=== PATIENT | female | born 1955 | race African-American/Black ===

== ENCOUNTER → 2016-09-26 | Outpatient (CLI) | payer BC ==
[~2016-09-26] MED LIST: LEXAPRO20 MG PO; SEROQUEL PO; VISTARIL PO
--- NOTE | ~2016-09-26 | MY11 ---
[facility] A Service of [facility] RADIOLOGY TEXT RESULTS PATIENT: LUZ DAVIS LOCATION: [facility] : 59 UNIT #: [id number] AGE: [address]: MONCHO MONTERROSO MD SEX: F ORDER DR: [id number] [facility] [address] [place], [place] [address] [id number] O MR#: [id number] Acc #: [id number] NAME: LUZ DAVIS : 1955 SEX: F STUDY DATE/TIME: 09/26/2016 9:58 UNIT: [facility] ROOM: STUDY DESCRIPTION: MY Mammogram Screening Dig Jayesh Attending Physician: Moncho Monterroso M.D. Ordering Physician: Moncho Monterroso M.D. Primary Care Physician: Moncho Monterroso M.D. MEDICAL IMAGING REPORT This report is preliminary unless electronic signature is present EXAM Screening mammogram 09/26/2016 INDICATIONS 61-year-old with no personal or family history of breast cancer. No current complaints. FINDINGS Routine digital screening views of both breasts were obtained. Study was reviewed with an FDA-approved CAD device. Comparison made with 06/12/2015, 12/12/2013, and 10/20/2011. Breast parenchyma shows scattered fibroglandular densities. No new masses or suspicious microcalcifications are seen. Benign calcifications are present in both breasts. Benign nodularity in the right breast is stable. There is a subareolar nodule in the left breast just lateral to and below the nipple line. This does measure slightly larger than on prior studies, now measuring up to 10 mm. Followup with ultrasound is recommended for further characterization. IMPRESSION 1. Benign right mammogram. 2. Slight enlargement of the nodule in the anterior subareolar left breast. Ultrasound followup is recommended of the left breast. Patients over the age of 40 are entered into a reminder system with target due date for the next mammogram. A result letter will also be sent to the patient. BIRADS: 0 Incomplete; need additional imaging evaluation and/or prior mammograms for comparison. [facility] A Service of [facility] RADIOLOGY TEXT RESULTS PATIENT: LUZ DAVIS LOCATION: [facility] : 59 UNIT #: [id number] AGE: [address]: MONCHO MONTERROSO MD SEX: F ORDER DR: Dictated by... Refugio Crump Jr., M.D. THIS IS AN ELECTRONICALLY VERIFIED REPORT Refugio Crump Jr., M.D. at 09/26/2016 4:47 PM SPARKLE/kassie TD: 09/26/2016 11:35 JOB #: [id number] MEDICAL IMAGING REPORT Page 1 of 1 COPY
== END | disposition home or self-care (01) ==
LOC: CWCC 09:11
DX: Z12.31 Encounter for screening mammogram for malignant neoplasm of breast (principal); N63 Unspecified lump in breast
CPT/HCPCS: G0202

== ENCOUNTER → 2016-10-03 | Outpatient (CLI) | payer BC ==
--- NOTE | ~2016-10-03 | US24 ---
[facility] A Service of [facility] RADIOLOGY TEXT RESULTS PATIENT: LUZ DAVIS LOCATION: [facility] : 59 UNIT #: [id number] AGE: [address]: MONCHO MONTERROSO MD SEX: F ORDER DR: [id number] [facility]. [place], [place] [address] [id number] O MR#: [id number] Acc #: [id number] NAME: LUZ DAVIS : 1955 SEX: F STUDY DATE/TIME: 10/03/2016 14:21 UNIT: [facility] ROOM: STUDY DESCRIPTION: US Breast Unilateral Attending Physician: Moncho Monterroso M.D. Referring Physician: Moncho Monterroso M.D. Ordering Physician: Moncho Monterroso M.D. Primary Care Physician: Moncho Monterroso M.D. MEDICAL IMAGING REPORT This report is preliminary unless electronic signature is present EXAM Targeted ultrasound of the left breast. DATE OF EXAM 10/03/2016 INDICATIONS Asymmetry in the anterior left breast on a recent screening mammogram. Ultrasound requested for further assessment. TECHNIQUE Targeted ultrasound of the left breast was performed with attention to the subareolar left breast in the area of the patient's nodule on the recent mammogram. COMPARISON No comparison ultrasounds. FINDINGS LEFT BREAST: The patient was initially scanned independently by the technologist and then rescanned in my presence. In the subareolar/periareolar left breast, there is a lobulated cyst measuring up to about 13 x 8 x 10 mm. This is felt to correspond to the nodule on the patient's mammogram. It has benign features. Imaging of the subareolar left breast was also performed in conjunction with the imaging of the cyst. There is ductal ectasia on the left and there is a small solid intraluminal filling defect within the ducts measuring up to about 5 mm. There is no posterior acoustical shadowing, but there is faint color internal flow best appreciated in real-time. This probably represents a tiny benign intraductal papilloma. Ultrasound-guided core biopsy is however recommended for further assessment and characterization. [facility] A Service of [facility] RADIOLOGY TEXT RESULTS PATIENT: LUZ DAVIS LOCATION: [facility] : 59 UNIT #: [id number] AGE: [address]: MONCHO MONTERROSO MD SEX: F ORDER DR: Findings regarding recommendations for biopsy were discussed with the patient, also communicated directly to the breast rn transitional care at the time of this dictation. The patient has voiced understanding and agreement. She did indicate initially that she was not interested in undergoing the biopsy but subsequently indicated that she would schedule the biopsy as recommended. The breast rn transitional care is in the process of notifying the office of Dr. Moncho Monterroso regarding the recommendations for biopsy. IMPRESSION 1. There is a cyst in the periareolar subareolar left breast that corresponds to the nodule on the patient's mammogram. This is a benign cyst measuring about 13 x 10 mm. 2. There is ductal ectasia on the left, and there is a small intraluminal filling defect within the ducts measuring up to about 5 mm. This may represent an intraductal papilloma, but ultrasound-guided core biopsy is recommended for further assessment. The breast rn transitional care has been notified, and the patient is aware of the recommendation for biopsy as well. See discussion above. Patients over the age of 40 are entered into a reminder system with target due date for the next mammogram. A result letter will also be sent to the patient. BIRADS: 4 Suspicious abnormality; biopsy should be considered. STAT * RESULT Dictated by... Marlon Vasquez M.D. THIS IS AN ELECTRONICALLY VERIFIED REPORT Marlon Vasquez M.D. at 10/03/2016 5:25 PM Con TD: 10/03/2016 15:41 JOB #: [id number] MEDICAL IMAGING REPORT Page 1 of 1 COPY
== END | disposition home or self-care (01) ==
LOC: CWCC 13:53
DX: N63 Unspecified lump in breast (principal); N60.02 Solitary cyst of left breast; N60.42 Mammary duct ectasia of left breast
CPT/HCPCS: 76641

== ENCOUNTER → 2016-10-10 | Day surgery (SDC) | payer BC ==
--- NOTE | ~2016-10-10 | US200 ---
[facility] A Service of [facility] RADIOLOGY TEXT RESULTS PATIENT: LUZ DAVIS LOCATION: [facility] : 59 UNIT #: [id number] AGE: [address]: MONCHO MONTERROSO MD SEX: F ORDER DR: [id number] [id number] [place], [place] [address] [id number] O MR#: [id number] Acc #: [id number] NAME: LUZ DAVIS : 1955 SEX: F STUDY DATE/TIME: 10/10/2016 12:50 UNIT: [facility] ROOM: STUDY DESCRIPTION: US Breast Guided Bx 1st Lesion Attending Physician: Moncho Monterroso M.D. Ordering Physician: Moncho Monterroso M.D. Primary Care Physician: Moncho Monterroso M.D. MEDICAL IMAGING REPORT This report is preliminary unless electronic signature is present REVISED REPORT SEE ADDENDUM EXAM Ultrasound-guided left breast biopsy 10/10/2016 INDICATIONS Intraductal subareolar left breast mass. PROCEDURE Following discussion of the procedure including potential risks and benefit informed consent was obtained. The patient's questions were answered. The patient was brought to the ultrasound suite, a call to order time-out was performed. Preliminary imaging again shows the intraductal left breast mass. Adequate skin entry site was identified. Skin was prepped and draped using full sterile technique. Skin and overlying soft tissues were anesthetized buffered lidocaine. Then under ultrasound guidance 2 core samples were obtained from the mass. Images were stored. Then a biopsy marker clip was placed under ultrasound guidance. At the time of clip placement a small hematoma had developed in the subareolar region. The mass itself was very difficult to see. The biopsy marker clip was placed in the general vicinity of the mass. IMPRESSION 1. Ultrasound-guided core biopsy of a subareolar left breast mass. No immediate complication. 2. Post clip placement mammogram shows the marker clip in the general vicinity of the mass. See above. Dictated by... Michele nAne M.D. [facility] A Service of [facility] RADIOLOGY TEXT RESULTS PATIENT: LUZ DAVIS LOCATION: [facility] : 59 UNIT #: [id number] AGE: [address]: MONCHO MONTERROSO MD SEX: F ORDER DR: THIS IS AN ELECTRONICALLY VERIFIED REPORT Michele Anne M.D. at 10/13/2016 7:42 AM LETY/vinnie TD: 10/10/2016 18:41 JOB #: [id number] ADDENDUM/CORRECTION Addendum to breast biopsy DATE OF SERVICE: 10/10/16 Pathology is available. There is no invasive malignancy identified. Pathology is concordant with imaging features. Dictated by... Michele Anne M.D. THIS IS AN ELECTRONICALLY VERIFIED REPORT Michele Anne M.D. at 10/31/2016 10:09 PM Erica TD: 10/29/2016 08:19 JOB #: [id number] CC: Jana/noreen Please Delete MEDICAL IMAGING REPORT Page 1 of 1 COPY
== END | disposition home or self-care (01) ==
LOC: CWCC 12:20
DX: N60.82 Other benign mammary dysplasias of left breast (principal); N60.02 Solitary cyst of left breast; N60.42 Mammary duct ectasia of left breast; N60.32 Fibrosclerosis of left breast
CPT/HCPCS: 88305; G0204

== ENCOUNTER → 2016-11-26 | Day surgery (SDC) | payer BC ==
--- NOTE | ~2016-11-26 | MY14 ---
[facility] A Service of [facility] RADIOLOGY TEXT RESULTS PATIENT: LUZ DAVIS LOCATION: [facility] : 59 UNIT #: [id number] AGE: [address]: Young Haque MD SEX: F ORDER DR: [id number] [facility] [address] [place], [place] [address] [id number] O MR#: [id number] Acc #: [id number] NAME: LUZ DAVIS : 1955 SEX: F STUDY DATE/TIME: 11/26/2016 10:03 UNIT: [facility] ROOM: STUDY DESCRIPTION: MY Post Bx Film Attending Physician: Young Haque M.D. Referring Physician: Young Haque M.D. Ordering Physician: Young Haque M.D. Primary Care Physician: Monica Mcghee M.D. MEDICAL IMAGING REPORT This report is preliminary unless electronic signature is present EXAM MY post-biopsy film. INDICATIONS Post hookwire placement. FINDINGS CC and LM views of the left breast were obtained. The mammograms confirm clip deployment immediately adjacent to the biopsy clip. The hookwire enters the breast from the lateral breast and terminates just posterior to the nipple. IMPRESSION Successful hookwire deployment. Dictated by... Bautista Baumann M.D. THIS IS AN ELECTRONICALLY VERIFIED REPORT Bautista Baumann M.D. at 12/01/2016 3:00 PM BROOKE/sarah TD: 11/28/2016 22:05 JOB #: [id number] MEDICAL IMAGING REPORT Page 1 of 1 COPY
--- NOTE | ~2016-11-26 | MY20 ---
[facility] A Service of [facility] & [facility] RADIOLOGY TEXT RESULTS PATIENT: LUZ DAVIS LOCATION: [facility] : 59 UNIT #: [id number] AGE: [address]: Young Haque MD SEX: F ORDER DR: [id number] [facility] [address] [place], [place] [address] [id number] O MR#: [id number] Acc #: [id number] NAME: LUZ DAVIS : 1955 SEX: F STUDY DATE/TIME: 11/26/2016 8:58 UNIT: [facility] ROOM: STUDY DESCRIPTION: MY Breast Ndl Loc 1st Attending Physician: Young Haque M.D. Referring Physician: Young Haque M.D. Ordering Physician: Young Haque M.D. Primary Care Physician: Monica Mcghee M.D. MEDICAL IMAGING REPORT This report is preliminary unless electronic signature is present EXAM Mammographic needle localization. INDICATION Patient has initially scheduled for mammographic needle localization; however, when reviewing the patient's prior reports and prior imaging, the lesion was better localized using ultrasound guidance. FINDINGS The healthcare network consultant radiographs confirmed the presence of a biopsy clip and a well-circumscribed nodule. However, the intraductal lesion could not be delineated from the spot radiographs; therefore, an ultrasound-guided procedure was selected instead of mammographic guidance. Dictated by... Bautista Baumann M.D. THIS IS AN ELECTRONICALLY VERIFIED REPORT Bautista Baumann M.D. at 11/27/2016 1:25 PM BROOKE/kassie TD: 11/26/2016 16:17 JOB #: [id number] MEDICAL IMAGING REPORT Page 1 of 1 COPY
--- NOTE | ~2016-11-26 | US202 ---
[facility] A Service of [facility] RADIOLOGY TEXT RESULTS PATIENT: LUZ DAVIS LOCATION: [facility] #: [id number] : 59 UNIT #: [id number] AGE: [address]: Young Haque MD SEX: F ORDER DR: [id number] [facility] [address] [place], [place] [address] [id number] O MR#: [id number] Acc #: [id number] NAME: LUZ DAVIS : 1955 SEX: F STUDY DATE/TIME: 11/26/2016 9:17 UNIT: [facility] ROOM: STUDY DESCRIPTION: US Breast Guided Ndl Loc 1st Attending Physician: Young Haque M.D. Referring Physician: Young Haque M.D. Ordering Physician: Young Haque M.D. Primary Care Physician: Monica Mcghee M.D. MEDICAL IMAGING REPORT This report is preliminary unless electronic signature is present ADDENDUM The final pathology was reviewed. The diagnosis of an intraductal papilloma is concordant with the imaging findings. 6-month follow-up mammogram is recommended. Patient's prior imaging was reviewed. The area at the 12 o'clock position, right breast, is unchanged from 07/18/2010 and 11/30/2007 comparisons, indicating this is a benign finding. I would recommend the patient undergo a precautionary 6-month follow-up ultrasound to ensure that the mammographic and ultrasound findings are concordant. IMPRESSION 1. Probably benign finding in the right breast. 2. I would recommend a precautionary follow-up right breast ultrasound in 6 months to ensure that the ultrasound findings and mammographic findings are concordant. Patients over the age of 40 are entered into a reminder system with target due date for the next mammogram. A result letter will also be sent to the patient. BIRADS: 3 Probably benign finding; short interval followup suggested. Dictated by... Bautista Baumann M.D. [facility] A Service [facility] RADIOLOGY TEXT RESULTS PATIENT: LUZ DAVIS LOCATION: [facility] #: [id number] : 59 UNIT #: [id number] AGE: [address]: Young Haque MD SEX: F ORDER DR: THIS IS AN ELECTRONICALLY VERIFIED REPORT Bautista Baumann M.D. at 12/07/2016 10:28 PM Helene TD: 12/07/2016 10:59 JOB #: [id number] MEDICAL IMAGING REPORT Page 1 of 1 COPY
--- NOTE | ~2016-11-26 | OR ---
Unit #: [id number] #: [id number] Patient: LUZ DAVIS [id number] [address] [address] [id number] O MR#: [id number] NAME: LUZ DAVIS ROOM: Date of Procedure: 11/26/2016 Admission Date: 11/26/2016 Surgeon: Young Haque M.D. : 1955 Attending Physician: Young Haque M.D. Referring Physician: Young Haque M.D. Primary Care Physician: Monica Mcghee M.D. OPERATIVE REPORT PREOPERATIVE DIAGNOSIS Atypical ductal hyperplasia, left breast subareolar area. POSTOPERATIVE DIAGNOSIS Atypical ductal hyperplasia, left breast subareolar area. PROCEDURE PERFORMED Ultrasound guided needle localization excisional biopsy, left breast subareolar area. ANESTHESIA General LMA anesthesia with 0.5% Marcaine plain local anesthesia. FINDINGS The lesion, clip, and wire were all present within the specimen on specimen radiograph. SPECIMENS Sent to pathology. COMPLICATIONS None apparent. CONDITION The patient tolerated the procedure well. INDICATIONS FOR PROCEDURE The patient is a 61-year-old black female, who recently had a mammography performed. This revealed an abnormality in the left breast subareolar area. She subsequently underwent diagnostic mammography and ultrasound which confirmed a cystic structure. However, within one of the ducts, there was a small nodular lesion consistent with a papilloma. Ultrasound-guided core biopsy was performed and this returned as a focus of atypical ductal hyperplasia. She presents at this time for needle localization excisional biopsy. The right breast had no abnormality. DESCRIPTION OF PROCEDURE After obtaining informed consent as well as receiving preoperative antibiotics, the patient who earlier in the day underwent ultrasound-guided needle localization of the left breast subareolar area, who was brought to the operating room. After adequate general LMA anesthesia was obtained, she had her left breast prepped and draped in a Unit #: [id number] #: [id number] Patient: LUZ DAVIS sterile fashion. A curvilinear incision was made at the lateral edge of the areola and taken down through the skin with a knife and through the subdermal tissues with the electrocautery with good hemostasis. The wire was found and the area around the hook of the wire was grasped with an Allis clamp. It was circumferentially excised with electrocautery with good hemostasis and sent to mammography, where specimen radiograph revealed the lesion, clip, and wire to all be present within the specimen. The wound was irrigated. Hemostasis was obtained with the Bovie, infiltrated with 0.5% Marcaine plain local anesthesia. The deep tissues and subdermal tissues were reapproximated with interrupted 3-0 Vicryl suture. The skin was closed with 4-0 Vicryl subcuticular stitch. Benzoin and Steri-Strips were applied over the wound in an occlusive manner followed by dry dressing and a Tegaderm dressing. Needle counts, sponge counts, and instrument counts were all correct as reported by the scrub nurse x2. The patient went from the operating room to recovery room in stable condition. Dictated by... Olivier Galarza/adis TD: 11/27/2016 02:19 JOB #: [id number] [facility] OPERATIVE REPORT Page 1 of 1 X Young Haque MD X PROCEDURE OPERATIVE NOTE
== END | disposition home or self-care (01) ==
LOC: CSUR 07:45 → CWCC 08:00 → CSUR 11-27 10:30
DX: D24.2 Benign neoplasm of left breast (principal); N60.22 Fibroadenosis of left breast; N60.82 Other benign mammary dysplasias of left breast; N60.92 Unspecified benign mammary dysplasia of left breast; E78.5 Hyperlipidemia, unspecified; F41.9 Anxiety disorder, unspecified; F32.9 Major depressive disorder, single episode, unspecified; Z87.891 Personal history of nicotine dependence; Z98.51 Tubal ligation status
CPT/HCPCS: 76098; 88307; G0204; J0690; J1885; J2250; J2405; J3010